=== PATIENT | female | born 1985 | race Two or more races ===

== ENCOUNTER 2016-10-25 13:39 | Emergency (ER) | payer OTHER ==
[2016-10-25 13:48] VITALS: BP 145/84; PULSE 88; TEMP 98.8; BMI 32.3
--- NOTE | 2016-10-25 14:35 | PDOC ---
History of Present Illness - General History Source: Patient Exam Limitations: No Limitations - History of Present Illness Initial Comments: 10/25/16 14:37 Patient is a 28 year old female with no pmhx who presents today with laceration to the right wrist s/p trip and fall. Patient states that she tripped and landed on her right wrist sustaining a laceration by a broken glass. Last Tetanus shot was 3 years ago. <Kathi Tolentino - Last Filed: 10/25/16 14:36> <Elizabeth Bai - Last Filed: 10/25/16 15:44> - General Chief Complaint: Laceration Stated Complaint: LT ARM LACERATION Time Seen by Provider: 10/25/16 14:30 Past History <Kathi Tolentino - Last Filed: 10/25/16 14:36> - Psycho/Social/Smoking Cessation Hx Suicidal Ideation: No Smoking History: Never smoked <Elizabeth Bai - Last Filed: 10/25/16 15:44> - Past Medical History Allergies/Adverse Reactions: Allergies Allergy/AdvReac Type Severity Reaction Status Date / Time No Known Allergies Allergy Verified 10/25/16 13:46 Review of Systems - Review of Systems Able to Perform ROS?: Yes Comments:: 10/25/16 14:37 CONSTITUTIONAL: Absent: fever, no chills, no fatigue EYES: Absent: visual changes ENT: Absent: ear pain, no sore throat CARDIOVASCULAR: Absent: chest pain, no palpitations RESPIRATORY: Absent: cough, no SOB GI: Absent: abdominal pain, no nausea, no vomiting, no constipation, no diarrhea GENITOURINARY: Absent: dysuria, no frequency, no hematuria MUSCULOSKELETAL: Absent: back pain, no arthralgia, no myalgia SKIN: Present: right wrist laceration Absent: rash <Kathi Tolentino - Last Filed: 10/25/16 14:36> *Physical Exam - Vital Signs Last Vital Signs Temp Pulse Resp BP Pulse Ox 98.8 F 88 18 145/84 97 10/25/16 13:47 10/25/16 13:47 10/25/16 13:47 10/25/16 13:47 10/25/16 13:47 - Physical Exam Comments: 10/25/16 14:38 GENERAL: Well-appearing, well-nourished. No apparent distress. HEENT: Normocephalic, atraumatic. PERRL, EOM intact. CARDIOVASCULAR: Normal S1, S2. Regular rate and rhythm. PULMONARY: Clear to auscultation bilaterally. ABDOMEN: Soft, non-distended, non-tender. EXTREMITIES: (+)Full ROM of right wrist and fingers. No gross deformities. SKIN: (+) Laceration to the right wrist approximately 2 cm, No active bleeding. Warm, dry. No rash NEUROLOGICAL: No focal neurological deficits. <Kathi Tolentino - Last Filed: 10/25/16 14:36> - Vital Signs Last Vital Signs Temp Pulse Resp BP Pulse Ox 98.8 F 88 18 145/84 97 10/25/16 13:47 10/25/16 13:47 10/25/16 13:47 10/25/16 13:47 10/25/16 13:47 <Elizabeth Bai - Last Filed: 10/25/16 15:44> Procedures - Laceration/Wound Repair Right Wrist Wound Length: to 2.5 cm (2 cm) Wound Explored: no foreign body present Wound's Depth, Shape: superficial, irregular Irrigated w/ Saline: Yes Betadine Prep: Yes Anesthesia: 1% Lidocaine Amount of Anesthetic (ccs): 1 Wound Debrided: minimal Wound Repaired With: Sutures Suture Size/Type: 4:0 Number of Sutures: 6 Layer Closure: No Sterile Dressing Applied: Yes (bacitracin applied) Splint Applied: No <Elizabeth Bai - Last Filed: 10/25/16 15:44> ED Treatment Course - RADIOLOGY Radiograph Interpretation: 10/25/16 15:04 no foreign body visualized. official read pending. <Elizabeth Bai - Last Filed: 10/25/16 15:44> *DC/Admit/Observation/Transfer - Attestations Scribe Attestion: 10/25/16 14:39 Documentation prepared by ANH Schwartz, acting as certified medical technician for Elizabeth Bai NP. <Kathi Tolentino - Last Filed: 10/25/16 14:36> <Elizabeth Bai - Last Filed: 10/25/16 15:44> Diagnosis at time of Disposition: Laceration - Referrals Referrals: Estuardo Ayala MD [Primary Care Provider] - - Patient Instructions Printed Discharge Instructions: DI for Laceration Repair Additional Instructions: return to the ER in 7 days for suture removal. keep wound clean and dry. monitor for signs of infection, with increased redness, pus drainage etc. follow up with your doctor sooner if notice these symptoms.
== END 2016-10-25 15:52 | disposition home or self-care (01) ==
LOC: JERFT 13:39
PROC: 0HQDXZZ Repair Right Lower Arm Skin, External Approach (ICD-10-PCS; principal; 2016-10-25)
DX: S61.511A Laceration without foreign body of right wrist, initial encounter (principal); W01.110A Fall on same level from slipping, tripping and stumbling with subsequent striking against sharp glass, initial encounter; Y93.89 Activity, other specified; Y92.89 Other specified places as the place of occurrence of the external cause; Y99.8 Other external cause status
CPT/HCPCS: 12001-25; 73110-TC-RT; 99281-25